=== PATIENT | female | born 2000 | race American Indian/Alaskan Native ===

== ENCOUNTER 2021-12-18 22:04 | Emergency (ER) | payer SELFPAY ==
[2021-12-18] MEDS ORDERED: SODIUM CHLORIDE 0.9% 1000 ML 1,000 ML IV ONE (22:17)
--- NOTE | 2021-12-18 22:23 | Emergency Department Report ---
History of Present Illness - General Stated Complaint: OVERDOSE Time Seen by Provider: 12/18/21 22:09 Source: patient - History of Present Illness Initial Comments: Patient is 21 years old female with no significant past medical history. Patient brought to the emergency room by her boyfriend for evaluation of possible drug overdose. Patient boyfriend informed the triage nurse that she took delta 8 and according to him this is a type of marijuana. Patient presented to the ER with agitation and anxiety. Patient is not communicating well and kept screaming. Patient given Ativan 1 mg. Complaint: accidental overdose -: This evening Context: Accidental Overdose: wanted to get high Treatments Prior to Arrival: none - Related Data Allergies Allergy/AdvReac Type Severity Reaction Status Date / Time No Known Allergies Allergy Unverified 12/18/21 22:33 ED Review of Systems ROS: Stated complaint: OVERDOSE Other details as noted in HPI Comment: All other systems reviewed and negative Constitutional: denies: chills, fever Respiratory: denies: cough, shortness of breath, SOB with exertion, SOB at rest Cardiovascular: palpitations. denies: chest pain Gastrointestinal: denies: abdominal pain, nausea, vomiting, diarrhea, constipation, hematemesis, melena, hematochezia Musculoskeletal: denies: back pain Neurological: denies: headache, weakness, numbness, paresthesias, confusion, abnormal gait Psychiatric: anxiety. denies: depression, auditory hallucinations, visual hallucinations, homicidal thoughts, suicidal thoughts ED Physical Exam - General General appearance: alert, in no apparent distress, anxious, other (agitated) - Head Head exam: Present: atraumatic, normocephalic, normal inspection - Eye Eye exam: Present: normal appearance - ENT ENT exam: Present: normal exam, normal orophraynx, mucous membranes dry - Neck Neck exam: Present: normal inspection, full ROM. Absent: tenderness, meningis mus - Respiratory Respiratory exam: Present: normal lung sounds bilaterally. Absent: respiratory distress, wheezes, rales - Cardiovascular Cardiovascular Exam: Present: tachycardia - GI/Abdominal GI/Abdominal exam: Present: soft, normal bowel sounds. Absent: distended, tenderness, guarding, rebound, rigid, organomegaly, mass, bruit, pulsatile mass, hernia - Extremities Exam Extremities exam: Present: normal inspection, full ROM, normal capillary refill. Absent: tenderness, pedal edema, joint swelling, calf tenderness - Back Exam Back exam: Present: normal inspection, full ROM. Absent: CVA tenderness (R), CVA tenderness (L) - Neurological Exam Neurological exam: Present: alert, oriented X3, CN II-XII intact, normal gait, reflexes normal. Absent: motor sensory deficit - Psychiatric Psychiatric exam: Present: agitated, anxious. Absent: homicidal ideation, suicidal ideation - Skin Skin exam: Present: warm, intact, normal color ED Course Vital Signs 12/18/21 12/18/21 12/18/21 22:19 22:50 23:39 Temperature 98.9 F Pulse Rate 124 H 110 H Respiratory 18 16 Rate Blood Pressure 147/86 118/80 [Right] O2 Sat by Pulse 100 98 99 Oximetry 12/19/21 00:46 Temperature Pulse Rate 98 H Respiratory 16 Rate Blood Pressure 109/58 [Right] O2 Sat by Pulse 98 Oximetry - Reevaluation(s) Reevaluation #1: 12/19/21 05:26 Patient stated that she is feeling much better. Patient stated that she wanted to go to the bathroom. No acute distress. Heart rate is 89. ED Medical Decision Making - Lab Data Result diagrams: 12/18/21 22:28 12/18/21 22:28 - Medical Decision Making Patient is 21 years old female with no significant past medical history. Patient brought to the emergency room by her boyfriend for evaluation of possible drug overdose. Patient boyfriend informed the triage nurse that she took delta 8 and according to him this is a type of marijuana. Patient presented to the ER with agitation and anxiety. Patient is not communicating well and kept screaming. Patient given Ativan 1 mg. Patient is sleeping comfortably in no acute distress. Vital signs remained stable in the ER. Labs reviewed and is unremarkable except for UDS that is positive for marijuana. Patient counseled about drug abuse and advised to follow-up with her primary care physician in the next 2 to 3 days and to return to the ER if he develop any symptoms. Critical care attestation.: If time is entered above; I have spent that time in minutes in the direct care of this critically ill patient, excluding procedure time. ED Disposition Clinical Impression: Substance abuse Disposition: HOME / SELF CARE / HOMELESS Is pt being admited?: No Condition: Stable Instructions: Substance Use Disorder and Mental Illness Referrals: PRIMARY CARE, [Primary Care Provider] - 3-5 Days
[2021-12-18 23:06] LABS: BUN/Creatinine Ratio 13; Blood Urea Nitrogen 13 mg/dL (7-17); Calcium 9.4 mg/dL (8.4-10.2); Hemolysis Index 4
[2021-12-18 23:09] LABS: Hematocrit 39.6 % (30.3-42.9); Hemoglobin 12.8 gm/dl (10.1-14.3); Mean Corpuscular HGB Conc 32 % (30-34); Mean Corpuscular Volume 91 fl (79-97); Platelet Count 338 K/mm3 (140-440); Red Blood Count 4.38 M/mm3 (3.65-5.03); Red Cell Distribution Width 14.5 % (13.2-15.2)
[2021-12-18 23:16] LABS: Bacteria,Urine 1+ /HPF (Negative); Bilirubin,Urine NEG (Negative); Blood,Urine NEG (Negative); Color,Urine Yellow (Yellow); Mucus,Urine 2+ /HPF; WBC,Urine < 1.0 /HPF (0.0-6.0)
[2021-12-18] MEDS ORDERED: LORazepam 2 MG/ML VIAL IV ONE (23:17)
[2021-12-19 00:03] LABS: Amphetamine Screen,Urine PRESUMPTIVE NEGATIVE; Benzodiazepines Screen,Urine PRESUMPTIVE NEGATIVE; Cannabinoid Screen,Urine PRESUMPTIVE POSITIVE; Cocaine Screen,Urine PRESUMPTIVE NEGATIVE; Methadone Screen,Urine PRESUMPTIVE NEGATIVE; Opiate Screen,Urine PRESUMPTIVE NEGATIVE
[2021-12-19 00:47] VITALS: BP 109/58
[2021-12-19 03:02] LABS: Anisocytosis 1+; Band Neutrophils # (Manual) 0.1 K/mm3; Basophils % (Manual) 0 % (0.0-1.8); Platelet Estimate Consistent w Auto; Total Cells Counted 100
== END 2021-12-19 06:00 | disposition home or self-care (01) ==
LOC: ED 22:04
DX: T65.91XA Toxic effect of unspecified substance, accidental (unintentional), initial encounter (principal); Z79.899 Other long term (current) drug therapy; Y92.89 Other specified places as the place of occurrence of the external cause
CPT/HCPCS: 36415; 80048; 80307; 81001; 85007; 85025; 93005; 96361; 96374; 99284; J2060; J7030; 80320; G0480